=== PATIENT | female | born 1970 | race Caucasian/White ===

== ENCOUNTER 2024-02-25 08:20 | Emergency (ER) | payer OTHER, SELFPAY ==
[2024-02-25 08:22] VITALS: BP 140/98; PULSE 104; RESP 16; TEMP 36.6; O2SAT 99
--- NOTE | 2024-02-25 08:36 | CT_ITS ---
STUDY: CT BRAIN WITHOUT CONTRAST REASON FOR EXAM: Female, 58 years old. Confusion RADIATION DOSAGE (If Supplied By Facility): CTDIvol = ( 44.99 ) mGy, DLP = ( 798.92 ) mGycm TECHNIQUE: Transaxial CT imaging of the brain was performed without administration of intravenous contrast material. Individualized dose optimization techniques were used for this CT. COMPARISON: No relevant priors. FINDINGS: Normal soft tissue structures. Normal calvarium. There is moderate cerebral atrophy with widening of the extra-axial spaces and ventricular dilatation. Normal white matter tracts of the cerebral hemispheres. Normal basal ganglia and thalami. Normal brainstem. Normal cerebellum. There is no intracranial hemorrhage. There are no findings of an acute ischemic infarction. Normal visualized paranasal sinuses. CT/Brain/Head without Contrast IMPRESSION: Chronic involutional changes of the brain. Electronically Signed: Vipul Tracey MD at 9:40 EDT ,
--- NOTE | 2024-02-25 08:36 | EKG12_ITS ---
Test Reason : GENERAL Blood Pressure : / mmHG Vent. Rate : 087 BPM Atrial Rate : 087 BPM P-R Int : 118 ms QRS Dur : 088 ms QT Int : 364 ms P-R-T Axes : 038 020 042 degrees QTc Int : 438 ms Normal sinus rhythm Normal ECG Confirmed by Choco Hollingsworth ([id number]), editorial director NIKHIL BECKFORD ([id number]) on 02/27/2024 9:35:25 AM Referred By: Confirmed By:Choco Hollingsworth
--- NOTE | 2024-02-25 08:37 | ED.RN ---
osp arrived, states he has no other info. for pt.
--- NOTE | 2024-02-25 08:37 | EX.ED.DYSGE1 ---
HPI History of Present Illness Chief Complaint: Confusion Informant: EMS Narrative Narrative: Patient presents by EMS as a Maria Elena Torre. Patient found wandering the streets. Reported bystander called. Patient can tell us her first name is Ginny. She has a reported name is Vitaly. A daughter Leeann. She could not tell me last names or any phone numbers. She denies any pain symptoms. Blood glucose 128. PFSH PFS Social History Smoking Status: Unknown if ever smoked ROS ROS ED Constitutional Constitutional ED: Denies fever(s) Eyes Eyes: Denies change in vision Cardiovascular Cardiovascular: Denies chest pain Respiratory/Chest Respiratory/Chest: Denies cough Gastrointestinal Gastrointestinal: Denies abdominal pain, diarrhea, nausea or vomiting Musculoskeletal Musculoskeletal: Denies back pain Neurologic Neurologic: Denies headache(s) EXAM Physical Exam Const Vital Signs: 02/25/24 08:22 02/25/24 09:22 02/25/24 10:00 Temperature 97.8 F 97.4 F L Temperature Source Temporal Temporal Pulse Rate 104 H 98 90 Respiratory Rate 16 18 16 Blood Pressure 140/98 H 135/74 H 146/89 H Blood Pressure Mean 112 94 108 Pulse Ox 99 100 98 Oxygen Delivery Method Room Air Room Air Room Air Positive well nourished and well developed Constitutional Narrative: Nontoxic, moving all extremities General Appearance ED: well developed HEENT Reports moist mucous membranes HEENT Narrative: Small healing abrasion right upper outer lip normocephalic Eyes EOMs intact bilaterally and conjunctivae normal General Eye ED: Yes normal appearance of both eyes Neck no lymphadenopathy and supple General: Negative for tenderness Chest Wall Negative for inspection of chest normal or palpation of chest normal Chest: Negative for tenderness Resp normal respiratory effort and normal air movement Effort and Inspection: symmetric chest movement; Negative for respiratory distress Cardio regular rate, regular rhythm and no murmurs Rate: tachycardic Peripheral Pulses: pulses 2+ throughout GI normal to inspection, nondistended, normoactive bowel sounds and non-tender Palpation: Negative for guarding or rebound tenderness present Back/Spine no CVA tenderness and no thoracic nor lumbar tenderness Extremity normal to inspection General Extremety ED: Negative for edema or tenderness General Extremity: Negative for edema Neuro Neuro Narrative: Can only state her name is Ginny. Cannot tell me location or year. No focal neurological deficits. Sensorium / Orientation: awake and alert Skin no rashes or lesions noted MDM MDM MDM Narrative Medical decision making narrative: Interventions / MDM: Differential diagnosis: Acute encephalopathy unclear etiology, electrolyte abnormalities Diagnosis considered but do not suspect: Intracranial hemorrhage however CT negative. UTI however urine negative for infection. My EKG interpretation: Sinus rate of 87, no ST or T wave changes. Imaging independently reviewed and interpreted by myself: CT brain: No acute process. Chest x-ray 2 views: No infiltrates, no pneumothorax. Also read by radiology. External documents reviewed: N/A Test considered but not ordered:N/A ED course: Slight tachycardia on exam otherwise vital stable. No focal neurologic deficits. Will check head CT, chest x-ray labs and urine. Nursing will report to local police. 0945: Labs only significant slight hypokalemia 3.3. Urine negative for infection. Chest x-ray CT brain negative. Has been no callback from police at this time. She has no focal deficits. Nursing will perform bedside swallow before potassium is given as unclear etiology for her encephalopathy at this time. Will speak with hospitalist service for admission. 1013: Discussed with Dr. Rodarte for admission. Re-evaluation: stable Disposition discussed with patient/family/significant other: Case discussed with consulting clinician: Hospitalist This note was generated with AIRSIS dictation software. It may contain incorrect words, spelling, and punctuation that were not noted in checking the note before signing. Lab Data Attestation: I reviewed the patient's lab results. Labs: Laboratory Results - last 24 hr 02/25/24 02/25/24 08:37 09:00 WBC 7.3 RBC 4.84 Hgb 14.1 Hct 41.1 MCV 84.9 MCH 29.1 MCHC 34.3 RDW Std Deviation 36.3 RDW Coeff of Marshal 11.9 Plt Count 255 MPV 9.9 Immature Gran % (Auto) 0.400 Neut % (Auto) 82.6 H Lymph % (Auto) 10.0 L [place] % (Auto) 6.0 Eos % (Auto) 0.3 Baso % (Auto) 0.7 Absolute Neuts (auto) 6.1 Absolute Lymphs (auto) 0.73 L Nucleated RBC % 0 Sodium 142 Potassium 3.3 L Chloride 110 H Carbon Dioxide 24.0 Anion Gap 8 BUN 10 Creatinine 0.95 Est GFR (MDRD) Af Amer TNP Est GFR (MDRD) Non-Af TNP BUN/Creatinine Ratio 10.5 Glucose 102 Calcium 9.7 Total Bilirubin 1.00 AST 22 ALT 25 Alkaline Phosphatase 93 Total Protein 8.0 Albumin 4.2 Globulin 3.8 Albumin/Globulin Ratio 1.1 Urine Color Yellow Urine Clarity Clear Urine pH 8.0 Ur Specific [place] 1.010 Urine Protein Negative Urine Glucose (UA) Normal Urine Ketones Negative Urine Occult Blood Negative Urine Nitrite Negative Urine Bilirubin Negative Urine Urobilinogen Normal Ur Leukocyte Esterase Negative Urine RBC 0-5 SEEN Urine WBC 0 SEEN Ur Squamous Epith Cells 0 SEEN Amorphous Sediment 1+ Urine Bacteria 1+ Hyaline Casts 0-5 SEEN Urine Mucus 1+ Radiography Diagnostic Testing: Clinical Impression(s) from Imaging Studies Brain CT 02/25/24 08:36 IMPRESSION: Chronic involutional changes of the brain. Electronically Signed: Vipul Tracey MD at 9:40 EDT , Chest X-Ray 02/25/24 09:30 IMPRESSION: Prominence of the pulmonary arteries bilaterally suggestive of COPD. Electronically Signed: Vipul Tracey MD at 9:43 EDT , Discharge Plan Dx/Rx/DC Orders Clinical Impression: Acute encephalopathy, Hypokalemia, Confusion Disposition Disposition: Acute Care [facility]
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
[2024-02-25 09:05] LABS: Squamous Epithelial Cells - UA 0 SEEN /hpf (5-10); White Blood Cells 0 SEEN /hpf (0-5)
[2024-02-25 09:08] LABS: Absolute Lymphocyte Count 0.73 X10^3/uL (0.83-4.51); Absolute Neutrophil Count 6.1 X10^3/uL (2.0-7.7); Basophil# 0.05 X10^3/uL; Basophil% 0.7 % (0-1); Eosinophil# 0.02 X10^3/uL; Eosinophils% 0.3 % (0-5); Hematocrit 41.1 % (37-47); Hemoglobin 14.1 g/dL (12.0-15.0); Lymphocyte # 0.73 X10^3/ul (0.83-4.51); Mean Corp Hgb Conc 34.3 g/dL (32-36); Mean Corpuscular Hgb 29.1 pg (27.0-32.0); Mean Corpuscular Volume 84.9 fL (81-99); Mean Platelet Vol. 9.9 fl (6.2-12.0); Monocyte# 0.44 X10^3/uL; NRBC Flagged by Analyzer 0 % (0-5); Neutrophil # 6.05 X10^3/uL (2.7-7.7); Neutrophil % 82.6 % (47-70); Platelet Count 255 K/mm3 (150-450); RBC Distribution Width CV 11.9 % (11.6-14.6); RBC Distribution Width SD 36.3 fl (35.1-43.9); Red Blood Count 4.84 M/mm3 (4.2-5.4); White Blood Count 7.3 K/mm3 (4.4-11.0)
[2024-02-25] MEDS: 0.9% Normal Saline (500mL Bag) 500 ML 1000 ML IV (09:08)
[2024-02-25 09:11] LABS: Color, Urine Yellow (Yellow); Glucose, Dipstick Normal (Normal); Ketone-Dipstick Negative (Negative); Leukocyte Esterase-Dipstick Negative /ul (Negative); Nitrite-Dipstick Negative (Negative); Occult Blood-Urine Negative /ul (Negative); Protein-Dipstick Negative (Negative); Urine Bilirubin Dipstick Negative (Negative); Urine Clarity Clear (Clear); Urine Urobilinogen Normal (Normal)
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
[2024-02-25 09:22] VITALS: BP 135/74; PULSE 98; RESP 18; O2SAT 100
[2024-02-25 09:23] LABS: Bacteria 1+ /hpf (None Seen); Hyaline Cast 0-5 SEEN /lpf (0-5); Mucous, Urine 1+ /hpf (<or=2+)
[2024-02-25 09:25] LABS: Amorphous Sediment 1+; Red Blood Cells-Urine 0-5 SEEN /hpf (0-5)
[2024-02-25 09:28] LABS: ALB/GLOB Ratio 1.1 RATIO (0.9-2.4); AST(SGOT) 22 U/L (15-37); Alanine Aminotransfer ALT/SGPT 25 U/L (13-56); Albumin, Serum 4.2 g/dL (3.2-5.0); Alkaline Phosphatase 93 U/L (45-117); Anion Gap 8 (5-15); BUN 10 mg/dL (7-18); BUN/Creat Ratio 10.5 RATIO (10-20); Calcium,Total 9.7 mg/dL (8.5-10.1); Chloride 110 mmol/L (98-107); Creatinine, Serum 0.95 mg/dL (0.55-1.02); Globulin 3.8 g/dL (2.2-4.2); Glucose 102 mg/dL (74-106); Potassium 3.3 mmol/L (3.5-5.1); Sodium Level 142 mmol/L (136-145)
--- NOTE | 2024-02-25 09:30 | RAD_ITS ---
STUDY: X-RAY CHEST REASON FOR EXAM: Female, 58 years old. Confusion TECHNIQUE: PA and lateral views of the chest. COMPARISON: None. FINDINGS: EKG electrodes are seen. The lungs are clear and expanded. There is no demonstrated pleural abnormality. Normal size heart. Normal mediastinum and keyur. There is prominence of the pulmonary hilar arteries without peripheral pulmonary vascular congestion, suggesting pulmonary hypertension. Normal visualized aortic arch and descending thoracic aorta. Normal visualized thoracic spine. Normal visualized ribs, clavicles, and shoulders. There is no demonstrated abnormality of the visualized soft tissue structures of the upper abdomen. RAD/Chest PA and Lateral IMPRESSION: Prominence of the pulmonary arteries bilaterally suggestive of COPD. Electronically Signed: Vipul Tracey MD at 9:43 EDT ,
[2024-02-25] MEDS: Potassium Chloride Oral Tablet 20 MEQ PO (09:57)
[2024-02-25 10:00] VITALS: BP 146/89; PULSE 90; RESP 16; TEMP 36.3; O2SAT 98
--- NOTE | 2024-02-25 10:09 | PCM.HP.STD ---
HPI - General General Date of Service: 02/25/24 Chief Complaint: ALTERED MENTAL STATUS HPI Narrative JEFFREY MACIAS, is a 58 F with no known significant PMH who presents via the ED after being found wandering the streets. She was confused, and someone called the police. EMS arrived and brought her to the ED. She says she is called Ginny and her is called Vitaly as well as a daughter called Leeann. She does not know her surname or that of her and daughter. She was unable to give any history. Vitals in the ED were BP of 146/89, VT of 90, RR of 16 and temp of 97.4F. She was saturating at 98% on room air. CBC was unremarkable, and BMP was significant for potassium of 3.3 but was otherwise unremarkable. Urinalysis did show 1+ bacteria. CT of the brain showed chronic involutional changes and CXR showed prominence of the pulmonary arteries bilaterally suggestive of COPD. She is being admitted to be managed for acute encephalopathy of unknown etiology. The ED did contact [place] [employer] to inform them. Of note, patient's was eventually found after admission orders were placed, as he called the police to report her medicine and was directed to the hospital. According to her Vitaly, patient had been diagnosed with Alzheimer's dementia several years ago and had a pension for going walking. She had wandered off a few times recently but was found and brought back home. He had tried to restrict her to walking just in the driveway and the on their property but today she got up and wandered off and could not be found. They have been out searching for her and he had called the police and was told she was here. They had seen a neurologist down in [place] where they had recently relocated from and did not think that that got much help apart from her being diagnosed with Alzheimer's dementia. He is seeing a primary care doctor and wishes to follow-up with a primary care doctor. opted to take her home and did not wanted to be kept in the hospital. Patient was therefore discharged from the ED home in the care of her . [facility] Social History Smoking Status: Unknown if ever smoked ROS Review of Systems ROS Unobtainable: due to encephalopathy Vital Signs Vital Signs Vital Signs: 02/25/24 08:22 02/25/24 09:22 02/25/24 10:00 Temperature 97.8 F 97.4 F L Temperature Source Temporal Temporal Pulse Rate 104 H 98 90 Respiratory Rate 16 18 16 Blood Pressure 140/98 H 135/74 H 146/89 H Blood Pressure Mean 112 94 108 Pulse Ox 99 100 98 Oxygen Delivery Method Room Air Room Air Room Air Physical Exam Const alert Orientation / Consciousness: confused and disoriented HEENT hearing grossly normal bilaterally and moist oral mucous membranes Mouth: oral and palatal mucosa normal Eyes PERRL, EOMs intact bilaterally and conjunctivae normal Neck supple and no JVD Resp normal respiratory effort, no retractions and no use of accessory muscles Cardio regular rate, regular rhythm, S1 normal heart sound, S2 normal heart sound and no murmurs GI normal to inspection, nondistended, normoactive bowel sounds, soft to palpation, non-tender and non-distended Extremity normal to inspection, full ROM and no clubbing, cyanosis or edema Neuro CN's II-XII intact bilaterally and moves all extremities Neuro Narrative: confused, disoriented Sensorium / Orientation: awake Motor Exam: strength 5/5 throughout Psych Psych Narrative: confused Results Lab / Micro Data 02/25/24 08:37 02/25/24 08:37 Labs: Laboratory Results - last 24 hr 02/25/24 08:37: WBC 7.3, RBC 4.84, Hgb 14.1, Hct 41.1, MCV 84.9, MCH 29.1, MCHC 34.3, RDW Std Deviation 36.3, RDW Coeff of Marshal 11.9, Plt Count 255, MPV 9.9, Immature Gran % (Auto) 0.400, Neut % (Auto) 82.6 H, Lymph % (Auto) 10.0 L, [place] % (Auto) 6.0, Eos % (Auto) 0.3, Baso % (Auto) 0.7, Absolute Neuts (auto) 6.1, Absolute Lymphs (auto) 0.73 L, Nucleated RBC % 0, Sodium 142, Potassium 3.3 L, Chloride 110 H, Carbon Dioxide 24.0, Anion Gap 8, BUN 10, Creatinine 0.95, Est GFR (MDRD) Af Amer TNP, Est GFR (MDRD) Non-Af TNP, BUN/Creatinine Ratio 10.5, Glucose 102, Calcium 9.7, Total Bilirubin 1.00, AST 22, ALT 25, Alkaline Phosphatase 93, Total Protein 8.0, Albumin 4.2, Globulin 3.8, Albumin/Globulin Ratio 1.1 02/25/24 09:00: Urine Color Yellow, Urine Clarity Clear, Urine pH 8.0, Ur Specific [place] 1.010, Urine Protein Negative, Urine Glucose (UA) Normal, Urine Ketones Negative, Urine Occult Blood Negative, Urine Nitrite Negative, Urine Bilirubin Negative, Urine Urobilinogen Normal, Ur Leukocyte Esterase Negative, Urine RBC 0-5 SEEN, Urine WBC 0 SEEN, Ur Squamous Epith Cells 0 SEEN, Amorphous Sediment 1+, Urine Bacteria 1+, Hyaline Casts 0-5 SEEN, Urine Mucus 1+ Imaging Radiology Impression Brain CT 02/25/24 08:36 IMPRESSION: Chronic involutional changes of the brain. Electronically Signed: Vipul Tracey MD at 9:40 EDT , Chest X-Ray 02/25/24 09:30 IMPRESSION: Prominence of the pulmonary arteries bilaterally suggestive of COPD. Electronically Signed: Vipul Tracey MD at 9:43 EDT , Assessment & Plan Assessment/Plan (1) Confusion: (2) Acute encephalopathy: (3) Hypokalemia: PLAN: Plan #Acute encephalopathy due to underlying Alzheimer's dementia was found wandering the streets, unable to give any information apart from saying she is called Gniny, her is Vitaly and her daughter is Leeann. CT of the brain showed no acute intracranial pathology. labs significant for potassium of 3.3 CXR was suggestive of COPD, but no other active cardiopulmonary pathology admit to med surg get urine tox get MRI of the brain with and without contrast get EEG PT/OT consult neurology consult fall precautions As stated above in the HPI, was eventually found as he reported patient missing and given the above history and exam as know that she had Alzheimer's dementia. wishes for patient to be discharged home so patient discharged from the ED. #Hypokalemia: K is 3.3. Replaced in the ED. Will continue to monitor. DVT prophylaxis: SCDs Code status: presumptive full code as patient is too confused to discuss code status. Disposition: Patient discharged home to the care of her after he found her after calling the police to report her missing. Charges/Coding Visit Charges OBSV E&M: 26260 Observ/hosp same date L2
--- NOTE | 2024-02-25 10:32 | ED.RN ---
NIH SCORE FOR PT UPON ARRIVAL WAS 3 D/T EXPRESSIVE APHASIA. PT PASSED SWALLOW SCREENING WITH WATER PRIOR TO ADMIN POTASSIUM
[2024-02-25 11:00] VITALS: BP 134/78; PULSE 78; RESP 16; O2SAT 98
[2024-02-25 11:29] LABS: Amphetamine Urine VISTA NEGATIVE (<1000 ng/mL); Barbiturate Urine VISTA NEGATIVE (< 200 ng/mL); Benzodiazepine Urine VISTA NEGATIVE (< 200 ng/mL); Cocaine Urine VISTA NEGATIVE (< 300 ng/mL); Ecstacy Urine VISTA NEGATIVE (< 500 ng/mL); Methadone Urine VISTA NEGATIVE (< 300 ng/mL); PCP Urine VISTA NEGATIVE (< 25 ng/mL); THC Urine VISTA NEGATIVE (< 50 ng/mL); Vista UDS pH Range 8
[2024-02-25 11:55] VITALS: BP 139/63; PULSE 75; RESP 16; TEMP 36.5; O2SAT 98
--- NOTE | 2024-02-25 11:56 | ED.RN ---
Rere FARLEY was able to locate after he called in for a missing person. is at bedside. Dr Pan and hospitalist spoke with and decided pt was clear for d/c home.
== END 2024-02-25 11:58 | disposition home or self-care (01) ==
PROVIDERS: Student in an Organized Health Care Education/Training Program; Emergency Provider Emergency Medicine; PCP Family Medicine; Visit Provider Emergency Medicine
DX: G30.9 Alzheimer's disease, unspecified (principal); F02.80 Dementia in other diseases classified elsewhere, unspecified severity, without behavioral disturbance, psychotic disturbance, mood disturbance, and anxiety; E87.6 Hypokalemia; Z91.83 Wandering in diseases classified elsewhere
CPT/HCPCS: 70450; 71046; 80053; 80307; 81001; 85025; 93005; 96360; 99284; J7030; A4216

== ENCOUNTER 2024-09-11 14:19 | Emergency (ER) | payer OTHER, SELFPAY ==
[2024-09-11 14:22] VITALS: BP 135/82; PULSE 85; RESP 16; TEMP 36.9; O2SAT 100; BMI 18.5
[2024-09-11 14:27] VITALS: BP 124/44; PULSE 86; RESP 14; O2SAT 99
[2024-09-11] MEDS: Acetaminophen 500 MG Tablet 1000 MG PO (14:45)
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
--- NOTE | 2024-09-11 15:35 | RAD_ITS ---
PROCEDURE: RIGHT SHOULDER, FOUR VIEWS REASON FOR EXAM: PATIENT FELL. SHOULDER PAIN. TECHNIQUE: Four views of the right shoulder. COMPARISON: None. FINDINGS: RIGHT SHOULDER: No fracture. No suspicious bone lesion. Normal alignment of the acromioclavicular and glenohumeral joints. Soft tissues are unremarkable. RAD/Shoulder min 2 Views IMPRESSION: No abnormalities involving the right shoulder. Reading Location: [facility]
--- NOTE | 2024-09-11 15:35 | RAD_ITS ---
PROCEDURE: PA CHEST AND RIGHT RIBS TECHNIQUE: Frontal and bilateral oblique views of the bilateral ribs. COMPARISON: None. FINDINGS: No displaced rib fractures are identified. No suspicious lytic or blastic rib lesions. Chest shows no active cardiopulmonary disease. Large amount of fecal debris in the colon. RAD/Ribs Uni Min 3V w/PA Chest IMPRESSION: NO EVIDENCE OF ACUTE RIB FRACTURE OR PNEUMOTHORAX. NO ACTIVE CARDIOPULMONARY DISEASE. Reading Location: [facility]
--- NOTE | 2024-09-11 15:35 | RAD_ITS ---
PROCEDURE: RIGHT ELBOW, THREE VIEWS REASON FOR EXAM: PATIENT FELL. PAIN. TECHNIQUE: 3 view(s) of right elbow. COMPARISON: None. FINDINGS: RIGHT ELBOW: No visible fracture. No suspicious bone lesion. Normal alignment. No effusion. Soft tissues are unremarkable. RAD/Elbow min 3 Views IMPRESSION: No acute osseous findings involving the right elbow. Reading Location: [facility]
--- NOTE | 2024-09-11 15:35 | RAD_ITS ---
PROCEDURE: HUMERUS MIN 2 VIEWS REASON FOR EXAM: Patient fell. TECHNIQUE: 2 view(s) of right humerus. COMPARISON: None. FINDINGS: RIGHT HUMERUS: No fracture. No suspicious bone lesion. Normal alignment at the shoulder and elbow. Soft tissues are unremarkable. RAD/Humerus min 2 Views IMPRESSION: Negative right humerus. Reading Location: [facility]
[2024-09-11 17:40] VITALS: BP 120/65; PULSE 64; RESP 16; O2SAT 99
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
== END 2024-09-11 17:41 | disposition home or self-care (01) ==
PROVIDERS: Emergency Provider Surgery; PCP Family Medicine; Referring Provider Surgery; Visit Provider Surgery
DX: M25.511 Pain in right shoulder (principal); G30.9 Alzheimer's disease, unspecified; F02.80 Dementia in other diseases classified elsewhere, unspecified severity, without behavioral disturbance, psychotic disturbance, mood disturbance, and anxiety; M79.601 Pain in right arm; W19.XXXA Unspecified fall, initial encounter
CPT/HCPCS: 71101; 73030; 73060; 73080; 99284